=== PATIENT | male | born 1975 | race Caucasian/White ===

== ENCOUNTER 2017-03-14 11:49 | Emergency (ER) | payer OTHER ==
[~2017-03-14] VITALS: Ht 193 cm; Wt 120.5 kg
[2017-03-14 12:00] VITALS: BP 151/96; PULSE 56; RESP 15; O2SAT 99
--- NOTE | 2017-03-14 12:26 | ED.REPORT ---
HPI-Extremity Problem Lower Date of Service Mar 14, 2017 ED Provider: Curtis Sosa MD The pt is a 41 y/o male w/ a hx of HTN presenting to the ED complaining of LLE pain onset two months ago. The pain began after a long flight, has become worse over the last 4-5 days localized primarily to his calf, and is better w/ standing and worse w/ sitting. He is also feeling dizzy and anxious due to his symptoms. Denies chest pain, SOB. He is also planning on flying back home to [place] tomorrow. Nursing Notes Stated Complaint: PAIN IN LEG,DIZZY Chief Complaint: LLE pain Nursing Notes Reviewed: Yes ([employer], [employer] not reconciled) Allergies: Coded Allergies: No Known Allergies (Unverified , 03/14/17) Scheduled Dabigatran Etexilate Mesylate (Pradaxa) 150 Mg Capsule 150 MG PO BID Scheduled PRN Hydrocodone-Acetaminophen 5-325 mg (Hydrocodone-Acetaminophen 5-325 mg) 1 Each Tablet 1-2 TABLET PO Q6H PRN PRN For Pain General Time Seen by MD: 12:24 Chief Complaint Other (LLE pain ) Hx Obtained From: Patient Arrived By: Walk-in Onset Occurred: More than a week ago... (2 months) Symptom Duration: Since onset Recent Healthcare: No recent hospitalization, Recent doctor visit Similar Sx Previous: No Past Medical History Past Medical History HTN Past Surgical History Umbilical hernia surgery Family History Father had a hx of cancer and blood clots in 30's (?provoked) Social History Other Social History: Good social support, Ambulatory Status Independent Review of Systems Musculoskeletal: Reports: Extremity pain (LLE ) Neurologic: Reports: Dizziness Complete sys rev & neg: except as marked. Respiratory: Denies: Shortness of breath Cardiovascular: Denies: Chest pain Psychiatric: Reports: Anxiety Physical Exam Initial Vital Signs Vital Signs (First) Date Time Temp Pulse Resp B/P Pulse Ox O2 Delivery O2 Flow Rate FiO2 03/14/17 12:00 36.7 56 15 151/96 99 Room Air Initial VS: Reviewed, Vital signs normal General/Constitutional: Well-developed, Well-nourished Head / Eyes: Atraumatic, Normocephalic, PERRL ENT: Mucous membranes moist, Conjunctiva normal, No scleral icterus Neck: Supple, Non-tender, Full range of motion Respiratory: Breath sounds normal, Clear to auscultation, No respiratory distress Cardiovascular: Regular rate & rhythm, Heart sounds normal, Intact distal pulses Upper Extremities: Vascular intact, Neuro intact, No swelling, No tenderness Skin: Warm, Dry, No cyanosis Neurologic: Alert, Oriented, Nonfocal Psychiatric: Mood/affect normal, Behavior normal, Normal thought content Lower Extremity / Pelvis / MS: Full range of motion, No deformity, Neurologic intact, Vascular intact Ankle / Foot: Full range of motion, No deformity, Neurologic intact, Vascular intact Interpretation & Diagnostics PROCEDURE: US VEINOUS LEG DUPLEX UNILATERAL, LEFT IMPRESSION: No evidence of deep vein thrombosis involving the left lower extremity. Dictated by: Silke Quintanilla MD, PhD on 03/14/2017 at 13:37 Approved by: Silke Quintanilla MD, PhD on 03/14/2017 at 13:37 Re-Eval/Medical Decision Med Decision/Clinical Course This is a 41-year-old male visiting from [facility] since complaining of some left calf pain and concern for possible DVT. It is having some unprovoked calf soreness since returning from a flight to [place] over the past several weeks ago. He has had no chest pain or shortness breath was slightly lightheaded today. He has been meaning to follow up with his PCP in [place], but does is up here visiting family when his symptoms Got worse. He has had no chest pain, shortness breath, palpitations. He has no DVT or PE. There is a family history of a sounds like a DVT in his father in his 30s, but his father had a malignancy of the times it sounds like it was provoked. The patient is on low-dose aspirin prophylactically. History of vitals, clinically well-appearing, but has some calf discomfort- although it is not tender or swollen. There are no overt findings of DVT or PE evident on clinical exam. Heart tones are normal, is not tachycardic or hypoxic. An ulrasound was obtained and was normal and negative for DVT. Over the patient overall has a concerning presentation for possible calf vein thrombosis for which sensitivity is reduced. Furthermore is A family history, and is got additional flight starting tomorrow. So discussed options with him and the plan is compression stocking, symptom control, and we will try a short course of prophlyactic dabigatran and have him follow-up with his PCP, and suggested a follow-up ultrasound in 7-14 days. Routine precautions reviewed. Patient discharged in stable condition. Source of Hx: Old records Re-Evaluation/Progress : Time of Eval: 13:28 Re-Evaluation/Progress Note: Pt rechecked. Informed pt of plan for treatment. Pt understands and agrees with plan for treatment. F/U instructions and RTER warnings given. All questions addressed. Differential Diagnosis: Negative: Abrasion, Abscess, Achilles tendon rupture, Ankle dislocation, Compartment syndrome, Guillain-Gunlock syndrome, Hip fracture, Knee effusion, Venous thromboembolism Counseled Regarding: Diagnosis, Lab results, Need for follow-up, When/why to return to ED Discharge & Departure Impression: Primary Impression: Left leg pain Disposition: Home Discharge Condition All VS Reviewed: Yes Condition: Stable Additional Instructions: 1. No DVT was appreciated on ultrasound today. However, if you are still having symptoms in a week, a repeat ultrasound is recommended. 2. Activities as tolerated. 3. I do recommend wearing compression stockings when you fly tomorrow. (Thigh high are best, but are more awkward and difficult to apply, but knee high also work well. These are available at the drug store.) 4. Continue your low dose aspirin daily. 5. Take the blood thinner dabigatran (Pradaxa) for up to the next 10 days for prophylaxis given your flight tomorrow. Take 150mg twice a day. 6. Return if new or worsening symptoms. 7. We were not able to burn images to a CD today, but your doctor can call [phone] to talk to radiology to see if images could be transmitted if desired) 8. Take ibuprofen 400mg up to three times a day for soreness. 9. If needed for pain take hydrocodone/APAP 5/325 1-2 tabs up to every 6 hours. (start with one tab) : This medication contains tonic and causes drowsiness. Use sparingly and only if needed. Referrals: Amy Corbett Attestation Portions of this note were transcribed by Rangel Mukherjee. I, Dr. Sosa personally performed the history, physical exam and medical decision-making; I reviewed and confirmed the accuracy of the information in the transcribed note. copies to: Amy Corbett Matthew F MD Mar 14, 2017 12:26 Rangel Mukherjee Mar 14, 2017 12:40
--- NOTE | 2017-03-14 13:39 | DRSVH ---
PROCEDURE: US VEINOUS LEG DUPLEX UNILATERAL, LEFT INDICATIONS: pain ro DVT TECHNIQUE: Real-time imaging, as well as color and pulse Doppler interrogation, were performed of the lower extr emity deep veins from the inguinal ligament to the popliteal fossa. COMPARISON: None. FINDINGS: The deep veins are normally compressible, and free of intraluminal thrombus. Color and pu lse Doppler demonstrate normal phasic intraluminal flow. There is normal augmentation response to di stal compression maneuver. IMPRESSION: No evidence of deep vein thrombosis involving the left lower extremity. Dictated by: Silke Quintanilla MD, PhD on 03/14/2017 at 13:37 Approved by: Silke Quintanilla MD, PhD on 03/14/2017 at 13:37
[2017-03-14] MEDS ORDERED: DABI150C PO (13:52)
[2017-03-14] MEDS ORDERED: HYDR-4003 PO (13:52)
[2017-03-14 14:23] VITALS: BP 119/69; PULSE 52; O2SAT 99
== END 2017-03-14 14:22 | disposition home or self-care (01) ==
LOC: SED 11:49
DX: M79.662 Pain in left lower leg (principal); R42 Dizziness and giddiness; F41.9 Anxiety disorder, unspecified; I10 Essential (primary) hypertension; X50.1XXA Overexertion from prolonged static or awkward postures, initial encounter; Y92.813 Airplane as the place of occurrence of the external cause; Y93.89 Activity, other specified; Y99.8 Other external cause status